=== PATIENT | female | born 1985 | race Caucasian/White ===

== ENCOUNTER 2017-05-04 16:33 | Emergency (ER) | payer MEDICAID ==
[~2017-05-04] VITALS: Ht 160 cm; Wt 71.0 kg
[2017-05-04 16:37] VITALS: Ht 160 cm; Wt 71.0 kg
--- NOTE | 2017-05-04 22:06 | RADRPT ---
PROCEDURE: Obstetrical ultrasound greater than 14 weeks CLINICAL INDICATION: Vaginal bleeding TECHNIQUE: Real time sonographic imaging of the gravid uterus is performed transabdominally and mu ltiple static hernandez scale and Doppler images are submitted for review as are measurements. The image s are reviewed on the PACS. COMPARISON: No relevant exams are available FINDINGS: Round ovoid hypoechoic mass arising from the right lateral uterus consistent with a leiomyoma estima agnes at 9 x 6.7 x 6.6 cm. There is a single living intrauterine gestation in variable presentation. The heart beat is e stimated at 134 bpm. The measurements are as follows: BPD:3.79 cm HC:13.46 cm AC:11.15 cm FL:2.27 cm Estimated gestational age is 17 weeks 1 day. The estimated date of delivery is 10/11/2017. The estimated weight is 174 grams. Placenta is fundal and grade 0. There is no evidence of placenta previa or abruption. The amniotic fluid is qualitatively normal RPTAT:HJJR IMPRESSION: 1. Single viable intrauterine gestation estimated at 17 weeks 1 day with the estimated date of delfrancois stephen 10/11/2017. 2. Fundal grade 0 placenta without placenta previa or abruption. 3. Right lateral uterine leiomyoma of approximately 9 cm. Physician Yuni Date Time Electronically viewed and signed by Physician Yuni on 05/04/2017 22:06 JR/
--- NOTE | 2017-05-04 23:38 | ERD ---
ER Documentation Chief Complaint Chief Complaint vag bleed today (16wks ) HPI This is a 31-year-old female presents to the ER with vaginal bleeding that started today. Vaginal bleeding is light, she admits to mild pelvic pain. She denies urinary frequency or dysuria. Patient denies any vaginal discharge. She is currently 16 weeks . A0. ROS 12 point review of systems was done, all negative except per HPI. PMhx/Soc Medical and Surgical Hx: pt denies Medical Hx, pt denies Surgical Hx Hx Alcohol Use: No Hx Substance Use: No Hx Tobacco Use: No Smoking Status: Never smoker Physical Exam Vitals Vital Signs Date Time Temp Pulse Resp B/P Pulse Ox O2 Delivery O2 Flow Rate FiO2 05/04/17 16:37 98.2 77 18 124/60 99 Physical Exam GENERAL: The patient is well developed and appropriate for usual state of health , in no apparent distress. HEENT: Atraumatic. CHEST: Clear to auscultation bilaterally. There are no rales, wheezes or rhonchi. HEART: Regular rate and rhythm. No murmurs, clicks, rubs or gallops. ABDOMEN: Soft, nontender and nondistended. Good bowel sounds. No rebound or guarding. No gross peritonitis. No gross organomegaly or masses. No Lazcano sign or McBurney point tenderness. BACK: No midline or flank tenderness. NEURO: Alert and oriented. SKIN: The skin is warm and dry. Result Diagram: 05/04/172004 Results 24 hrs Laboratory Tests Test 05/04/17 20:00 05/04/17 20:05 Urine Color YELLOW Urine Clarity SLIGHTLY CLOUDY Urine pH 5.0 Urine Specific [place] 1.029 Urine Ketones 1+mg/dL Urine Nitrite NEGATIVEmg/dL Urine Bilirubin NEGATIVEmg/dL Urine Urobilinogen 1+mg/dL Urine Leukocyte Esterase TRACELeu/ul Urine Microscopic RBC 5/HPF Urine Microscopic WBC 4/HPF Urine Squamous Epithelial Cells FEW/HPF Urine Mucus FEW/HPF Urine Hemoglobin NEGATIVEmg/dL Urine Glucose NEGATIVEmg/dL Urine Total Protein NEGATIVEmg/dl White Blood Count 10.610^3/ul Red Blood Count 4.6610^6/ul Hemoglobin 14.1g/dl Hematocrit 40.8% Mean Corpuscular Volume 87.6fl Mean Corpuscular Hemoglobin 30.3pg Mean Corpuscular Hemoglobin Concent 34.6g/dl Red Cell Distribution Width 13.4% Platelet Count 60970^3/UL Mean Platelet Volume 11.3fl Neutrophils % 75.8% Lymphocytes % 16.5% Monocytes % 6.0% Eosinophils % 0.9% Basophils % 0.3% Nucleated Red Blood Cells % 0.0/100WBC Neutrophils # 8.010^3/ul Lymphocytes # 1.810^3/ul Monocytes # 0.610^3/ul Eosinophils # 0.110^3/ul Basophils # 0.010^3/ul Nucleated Red Blood Cells # 0.010^3/ul Beta HCG, Quantitative 74906.0mIU/ml Procedures/MDM Differential diagnosis: Threatened , missed , incomplete , ectopic , molar , UTI, pyelonephritis. This is a 31 -year-old female that presents to the ER with vaginal bleeding today. Patient' s appears to be normal at this time, she does have a fibroid which may be causing her bleeding. Patient is to follow-up with her RECORDIST CHIEF as soon as possible return to ER sooner if symptoms worsen. Medical decision making shared with the patient she understands and agrees with plan. Departure Diagnosis: Primary Impression: Vaginal bleeding in patient at less than 20 weeks ges... Condition: Stable Patient Instructions: Uterine Fibroids Additional Instructions: Llame al doctor HELIO y uri anahy DEX PARA DENTRO DE 1-2 OROZCO.Dgale a la secretaria que nosotros le instruimos hacer esta dex.Avise o llame si mazariegos condicin se empeora antes de la dex. Regresa aqui si peor o no mejor. NICOLA JEAN-BAPTISTE May 04, 2017 23:38
--- NOTE | 2017-05-04 23:38 | ERD ---
ER Documentation Chief Complaint Chief Complaint vag bleed today (16wks ) HPI This is a 31-year-old female presents to the ER with vaginal bleeding that started today. Vaginal bleeding is light, she admits to mild pelvic pain. She denies urinary frequency or dysuria. Patient denies any vaginal discharge. She is currently 16 weeks . A0. ROS 12 point review of systems was done, all negative except per HPI. PMhx/Soc Medical and Surgical Hx: pt denies Medical Hx, pt denies Surgical Hx Hx Alcohol Use: No Hx Substance Use: No Hx Tobacco Use: No Smoking Status: Never smoker Physical Exam Vitals Vital Signs Date Time Temp Pulse Resp B/P Pulse Ox O2 Delivery O2 Flow Rate FiO2 05/04/17 16:37 98.2 77 18 124/60 99 Physical Exam GENERAL: The patient is well developed and appropriate for usual state of health , in no apparent distress. HEENT: Atraumatic. CHEST: Clear to auscultation bilaterally. There are no rales, wheezes or rhonchi. HEART: Regular rate and rhythm. No murmurs, clicks, rubs or gallops. ABDOMEN: Soft, nontender and nondistended. Good bowel sounds. No rebound or guarding. No gross peritonitis. No gross organomegaly or masses. No Lazcano sign or McBurney point tenderness. BACK: No midline or flank tenderness. NEURO: Alert and oriented. SKIN: The skin is warm and dry. Result Diagram: 05/04/172004 Results 24 hrs Laboratory Tests Test 05/04/17 20:00 05/04/17 20:05 Urine Color YELLOW Urine Clarity SLIGHTLY CLOUDY Urine pH 5.0 Urine Specific [place] 1.029 Urine Ketones 1+mg/dL Urine Nitrite NEGATIVEmg/dL Urine Bilirubin NEGATIVEmg/dL Urine Urobilinogen 1+mg/dL Urine Leukocyte Esterase TRACELeu/ul Urine Microscopic RBC 5/HPF Urine Microscopic WBC 4/HPF Urine Squamous Epithelial Cells FEW/HPF Urine Mucus FEW/HPF Urine Hemoglobin NEGATIVEmg/dL Urine Glucose NEGATIVEmg/dL Urine Total Protein NEGATIVEmg/dl White Blood Count 10.610^3/ul Red Blood Count 4.6610^6/ul Hemoglobin 14.1g/dl Hematocrit 40.8% Mean Corpuscular Volume 87.6fl Mean Corpuscular Hemoglobin 30.3pg Mean Corpuscular Hemoglobin Concent 34.6g/dl Red Cell Distribution Width 13.4% Platelet Count 99352^3/UL Mean Platelet Volume 11.3fl Neutrophils % 75.8% Lymphocytes % 16.5% Monocytes % 6.0% Eosinophils % 0.9% Basophils % 0.3% Nucleated Red Blood Cells % 0.0/100WBC Neutrophils # 8.010^3/ul Lymphocytes # 1.810^3/ul Monocytes # 0.610^3/ul Eosinophils # 0.110^3/ul Basophils # 0.010^3/ul Nucleated Red Blood Cells # 0.010^3/ul Beta HCG, Quantitative 99786.0mIU/ml Procedures/MDM Differential diagnosis: Threatened , missed , incomplete , ectopic , molar , UTI, pyelonephritis. This is a 31 -year-old female that presents to the ER with vaginal bleeding today. Patient' s appears to be normal at this time, she does have a fibroid which may be causing her bleeding. Patient is to follow-up with her SHIRT SEWER as soon as possible return to ER sooner if symptoms worsen. Medical decision making shared with the patient she understands and agrees with plan. Departure Diagnosis: Primary Impression: Vaginal bleeding in patient at less than 20 weeks ges... Condition: Stable Patient Instructions: Uterine Fibroids Additional Instructions: Llame al doctor HELIO y uri anahy DEX PARA DENTRO DE 1-2 OROZCO.Dgale a la secretaria que nosotros le instruimos hacer esta dex.Avise o llame si mazariegos condicin se empeora antes de la dex. Regresa aqui si peor o no mejor. NICOLA JEAN-BAPTISTE May 04, 2017 23:38
--- NOTE | 2017-05-04 23:38 | ERD ---
ER Documentation Chief Complaint Chief Complaint vag bleed today (16wks ) HPI This is a 31-year-old female presents to the ER with vaginal bleeding that started today. Vaginal bleeding is light, she admits to mild pelvic pain. She denies urinary frequency or dysuria. Patient denies any vaginal discharge. She is currently 16 weeks . A0. ROS 12 point review of systems was done, all negative except per HPI. PMhx/Soc Medical and Surgical Hx: pt denies Medical Hx, pt denies Surgical Hx Hx Alcohol Use: No Hx Substance Use: No Hx Tobacco Use: No Smoking Status: Never smoker Physical Exam Vitals Vital Signs Date Time Temp Pulse Resp B/P Pulse Ox O2 Delivery O2 Flow Rate FiO2 05/04/17 16:37 98.2 77 18 124/60 99 Physical Exam GENERAL: The patient is well developed and appropriate for usual state of health , in no apparent distress. HEENT: Atraumatic. CHEST: Clear to auscultation bilaterally. There are no rales, wheezes or rhonchi. HEART: Regular rate and rhythm. No murmurs, clicks, rubs or gallops. ABDOMEN: Soft, nontender and nondistended. Good bowel sounds. No rebound or guarding. No gross peritonitis. No gross organomegaly or masses. No Lazcano sign or McBurney point tenderness. BACK: No midline or flank tenderness. NEURO: Alert and oriented. SKIN: The skin is warm and dry. Result Diagram: 05/04/172004 Results 24 hrs Laboratory Tests Test 05/04/17 20:00 05/04/17 20:05 Urine Color YELLOW Urine Clarity SLIGHTLY CLOUDY Urine pH 5.0 Urine Specific [place] 1.029 Urine Ketones 1+mg/dL Urine Nitrite NEGATIVEmg/dL Urine Bilirubin NEGATIVEmg/dL Urine Urobilinogen 1+mg/dL Urine Leukocyte Esterase TRACELeu/ul Urine Microscopic RBC 5/HPF Urine Microscopic WBC 4/HPF Urine Squamous Epithelial Cells FEW/HPF Urine Mucus FEW/HPF Urine Hemoglobin NEGATIVEmg/dL Urine Glucose NEGATIVEmg/dL Urine Total Protein NEGATIVEmg/dl White Blood Count 10.610^3/ul Red Blood Count 4.6610^6/ul Hemoglobin 14.1g/dl Hematocrit 40.8% Mean Corpuscular Volume 87.6fl Mean Corpuscular Hemoglobin 30.3pg Mean Corpuscular Hemoglobin Concent 34.6g/dl Red Cell Distribution Width 13.4% Platelet Count 70256^3/UL Mean Platelet Volume 11.3fl Neutrophils % 75.8% Lymphocytes % 16.5% Monocytes % 6.0% Eosinophils % 0.9% Basophils % 0.3% Nucleated Red Blood Cells % 0.0/100WBC Neutrophils # 8.010^3/ul Lymphocytes # 1.810^3/ul Monocytes # 0.610^3/ul Eosinophils # 0.110^3/ul Basophils # 0.010^3/ul Nucleated Red Blood Cells # 0.010^3/ul Beta HCG, Quantitative 95925.0mIU/ml Procedures/MDM Differential diagnosis: Threatened , missed , incomplete , ectopic , molar , UTI, pyelonephritis. This is a 31 -year-old female that presents to the ER with vaginal bleeding today. Patient' s appears to be normal at this time, she does have a fibroid which may be causing her bleeding. Patient is to follow-up with her COMMERCIAL ARTIST as soon as possible return to ER sooner if symptoms worsen. Medical decision making shared with the patient she understands and agrees with plan. Departure Diagnosis: Primary Impression: Vaginal bleeding in patient at less than 20 weeks ges... Condition: Stable Patient Instructions: Uterine Fibroids Additional Instructions: Llame al doctor HELIO y uri anahy DEX PARA DENTRO DE 1-2 OROZCO.Dgale a la secretaria que nosotros le instruimos hacer esta dex.Avise o llame si mazariegos condicin se empeora antes de la dex. Regresa aqui si peor o no mejor. NICOLA JEAN-BAPTISTE May 04, 2017 23:38
== END 2017-05-04 22:40 | disposition home or self-care (01) ==
LOC: FTE 16:33
DX: O20.9 Hemorrhage in early pregnancy, unspecified (principal); R10.2 Pelvic and perineal pain; Z3A.17 17 weeks gestation of pregnancy
CPT/HCPCS: 76805; 81001; 84702; 85025; 86900; 86901; Z7502

== ENCOUNTER 2017-10-02 13:11 | Inpatient (IN) | END 2017-10-07 16:47 | disposition home or self-care (01) | DRG 766 ==

== ENCOUNTER 2017-10-18 10:52 | Emergency (ER) | END 2017-10-18 11:33 | disposition home or self-care (01) ==

== ENCOUNTER 2017-10-20 10:46 | Emergency (ER) | END 2017-10-20 13:35 | disposition home or self-care (01) ==